=== PATIENT | female | born 1990 | race Asian ===

== ENCOUNTER → 2019-08-23 14:07 | Outpatient (CLI) | payer BC, SELFPAY ==
[2019-08-23 15:26] LABS: hCG Titer Quant., Serum 11263 mIU/mL (1-3)
== END ==
PROVIDERS: Referring Provider Obstetrics & Gynecology; Visit Provider Obstetrics & Gynecology
DX: N91.2 Amenorrhea, unspecified (principal)
CPT/HCPCS: 36415; 84702

== ENCOUNTER → 2019-08-26 08:08 | Outpatient (CLI) | payer BC, SELFPAY ==
[2019-08-26 08:56] LABS: hCG Titer Quant., Serum 11113 mIU/mL (1-3)
== END ==
PROVIDERS: Referring Provider Obstetrics & Gynecology; Visit Provider Obstetrics & Gynecology
DX: N91.2 Amenorrhea, unspecified (principal)
CPT/HCPCS: 36415; 84702

== ENCOUNTER 2019-08-31 17:38 | Emergency (ER) | payer BC, SELFPAY ==
[2019-08-31 17:41] VITALS: BP 115/68; PULSE 88; RESP 17; TEMP 36.3; O2SAT 100; BMI 19.8
--- NOTE | 2019-08-31 17:54 | ED.VIS.FEGU ---
History of Present Illness Chief Complaint: Vag Bld, Preg Informant: Patient Pain: Pelvic Pain Onset: Today Context: Gradual Onset Timing: Waxes and wanes Quality: Cramping Location: Suprapubic Current Severity: Mild Maximum Severity: Mild Issue: Vaginal bleeding Onset: Yesterday Context: Gradual Onset Timing: Intermittent Current Severity: Mild Maximum Severity: Mild Associated Symptoms: Negative for: Dysuria, Frequency, Urgency, Hematuria Test: Positive, Urine, Home Sexually: Single Partner P: 0 Ab: 2 Narrative: Patient had a home test that was positive, and is around 8 weeks along, states she started bleeding spontaneously yesterday a little worse today. A little cramping. No lightheadedness or syncope. Past Medical History - Allergies and Home Meds Allergies/Adverse Reactions: Allergies No Known Allergies Allergy (Verified 08/31/19 17:40) Primary Care Physician: Opal Agustin MD [STAFF PHYSICIAN] - 3-5 Days Doctors: WILLAM - Nikole Past Medical History: None Lives: Spouse/ Significant Other Review of Systems General: Denies: Chills, Fever, Sweats Eyes: Denies: Visual changes - bilaterally, Diplopia ENT: Denies: Rhinorrhea, Sore throat Cardiovascular: Denies: Chest pain, Palpitations Respiratory: Denies: Dyspnea, Cough, Dyspnea on exertion Gastrointestinal: Reports: Abdominal pain. Denies: Nausea, Vomiting, Diarrhea, Melena, Hematochezia Genitourinary: Reports: - - vaginal bleeding. Denies: Dysuria, Hematuria, Frequency Musculoskeletal: Denies: Back pain, Extremity Pain Skin: Denies: Rash, Wounds Neurological: Denies: Headache, Weakness, Numbness Physical Exam Vital Signs/Narrative: Vital Signs Temp Pulse Resp BP Pulse Ox 08/31/19 17:41 97.4 F L 88 17 115/68 100 Inital Vital Signs reviewed: Yes General: Well nourished, Well developed Head: Normocephalic, Atraumatic Eyes: Perrl, EOMI ENT: Moist mucous membranes, No rhinorrhea Neck: Supple, Nontender Cardiovascular: Regular rate, Regular rhythm, No murmurs Respiratory: No distress, CTA bilaterally, Chest nontender Abdomen: Soft, Nontender, Nondistended, Normal bowel sounds Back: Nontender, Normal Inspection. Negative for: CVA tenderness Extremities: Nontender, No edema Skin: Normal color, No rash Neurological: Alert, Oriented x3, Cranial nerves II-XII grossly intact, Normal Strength, Normal Sensation, Normal Gait Psychological: Normal affect, Normal Mood Diagnostic/Tx/Re-eval Clinical Impression(s) from Imaging Studies Obstetrics Ultrasound 08/31/19 18:05 IMPRESSION: Single IUP at 6 weeks and 3 days by ultrasound criteria Electronically Signed: Bobby Ge MD at 19:54 EDT , Service support , Laboratory Results 08/31/19 08/31/19 08/31/19 17:56 18:10 18:10 HCG, Quant 9552 H Urine Color Yellow Urine Clarity Sl. Cloudy Urine pH 6.5 Ur Specific [place] 1.015 Urine Protein Negative Urine Glucose (UA) Normal Urine Ketones Negative Urine Occult Blood 150 H Urine Nitrite Negative Urine Bilirubin Negative Urine Urobilinogen 1 H Ur Leukocyte Esterase Negative Urine RBC 0-5 SEEN Urine WBC 0 SEEN Ur Squamous Epith Cells 0-5 SEEN Urine Bacteria RARE Urine Mucus 0 SEEN Blood Type TNP 08/31/19 18:10 HCG, Quant Urine Color Urine Clarity Urine pH Ur Specific [place] Urine Protein Urine Glucose (UA) Urine Ketones Urine Occult Blood Urine Nitrite Urine Bilirubin Urine Urobilinogen Ur Leukocyte Esterase Urine RBC Urine WBC Ur Squamous Epith Cells Urine Bacteria Urine Mucus Blood Type B POSITIVE - Medical Decision/Diagnostic Studies I performed a bedside ultrasound, however visualization was very difficult, possibly related to the fact that the patient had just emptied her bladder and had a lot of bowel gas. It appeared that she had a double decidual sign but I was not able to see anything else within it. Therefore an official ultrasound was obtained transvaginally in radiology. It shows a scant amount of free fluid, no sign of an ectopic, and a single live intrauterine with heart tones 117 and estimated CRL at 6-week 3-day. Quantitative hCG is 9500. At this time, she is a threatened and stable for outpatient follow-up. Appropriate discharge instructions given. Since her blood type is B+, RhoGam not indicated. ED Disposition - Plan for ED Patient: Disposition: Home or Assisted Living Diagnosis: Threatened in first trimester Instructions: ED Possible Miscarriage Threatened Referrals: Opal Agustin MD [STAFF PHYSICIAN] - 3-5 Days
--- NOTE | 2019-08-31 18:05 | US_ITS ---
STUDY: FIRST TRIMESTER OBSTETRICAL ULTRASOUND REASON FOR EXAM: Female, 29 years old SPOTTING AND CRAMPING JUST TODAY TECHNIQUE: Transvaginal TECHNICAL QUALITY: Adequate. PRIOR ULTRASOUND: None. FINDINGS: There is visualization of a single gestational sac in a normal intrauterine position. The mean sac diameter (MSD) measures 1.64 cm, indicating an estimated gestational age (EGA) of 6 weeks, 4 days. The gestational sac shape is within normal limits. There is a visualized yolk sac. The yolk sac measures 6.6 mm. The placenta is non-visualized. There is visualization of a live embryo. The crown-rump length (CRL) measures 0.45 cm, indicating an estimated gestational age (EGA) of 6 weeks, 2 days. There is demonstrated cardiac activity with a heart rate of 117 bpm. The estimated gestation age (EGA) by US is 6 weeks, 3 days. The estimated date of delivery (DREW) by US is April 22, 2020. The uterus measures 7.1 x 6.2 x 4.2 cm. There is no demonstrated uterine fibroid. The cervix is closed. The right ovary measures 3.7 x 2.7 cm. There is no right ovarian cyst. There is no visualized right adnexal mass or complex lesion. The left ovary measures 3.0 x 2.2 cm. There is no left ovarian cyst. There is no visualized left adnexal mass or complex lesion. There is minimal fluid in the cul de sac. US/Transvaginal w/Preg US IMPRESSION: Single IUP at 6 weeks and 3 days by ultrasound criteria Electronically Signed: Bobby Ge MD at 19:54 EDT , Service support ,
[2019-08-31 18:23] LABS: Mucous, Urine 0 SEEN /hpf (<or=2+); White Blood Cells 0 SEEN /hpf (0-5)
[2019-08-31 18:27] LABS: Color, Urine Yellow (Yellow); Glucose, Dipstick Normal (Normal); Ketone-Dipstick Negative (Negative); Leukocyte Esterase-Dipstick Negative /ul (Negative); Nitrite-Dipstick Negative (Negative); Occult Blood-Urine 150 /ul (Negative); Protein-Dipstick Negative (Negative); Specific Gravity, Urine 1.015 (1.002-1.030); Urine Bilirubin Dipstick Negative (Negative); Urine Clarity Sl. Cloudy (Clear); Urine Urobilinogen 1 mg/dl (Normal); Urine pH 6.5 (5.0 - 8.0)
[2019-08-31 18:48] LABS: Red Blood Cells-Urine 0-5 SEEN /hpf (0-5); Squamous Epithelial Cells - UA 0-5 SEEN /hpf (5-10)
[2019-08-31 18:49] LABS: Bacteria RARE /hpf (None Seen)
[2019-08-31 18:54] LABS: hCG Titer Quant., Serum 9552 mIU/mL (1-3)
[2019-08-31 20:19] VITALS: RESP 14
== END 2019-08-31 20:19 | disposition home or self-care (01) ==
PROVIDERS: Emergency Provider Emergency Medicine
DX: O20.0 Threatened abortion (principal); Z3A.01 Less than 8 weeks gestation of pregnancy
CPT/HCPCS: 76817; 81001; 84702; 86900; 86901; 99283; A4216

== ENCOUNTER → 2019-10-23 18:03 | Outpatient (CLI) | payer BC, SELFPAY ==
[2019-09-04 13:17] VITALS: BMI 19.8
[2019-10-23 20:40] LABS: hCG Titer Quant., Serum 25858 mIU/mL (1-3)
== END ==
PROVIDERS: Nurse Practitioner Women's Health; Referring Provider Obstetrics & Gynecology; Visit Provider Obstetrics & Gynecology
DX: O20.0 Threatened abortion (principal); Z3A.00 Weeks of gestation of pregnancy not specified
CPT/HCPCS: 84702; 86850; 86900; 86901

== ENCOUNTER → 2019-10-25 15:02 | Outpatient (CLI) | payer BC, SELFPAY ==
[2019-09-04 13:17] VITALS: BMI 19.8
--- NOTE | 2019-10-25 15:09 | US_ITS ---
STUDY: FIRST TRIMESTER OBSTETRICAL ULTRASOUND REASON FOR EXAM: Female, 29 years old. Spotting. Recent miscarriage. LMP: Unknown. TECHNIQUE: Transvaginal PRIOR ULTRASOUND: None. FINDINGS: There is visualization of a single gestational sac in a normal intrauterine position. There is a visualized yolk sac. There is visualization of a live embryo. The crown-rump length (CRL) measures 4.4 mm, indicating an estimated gestational age (EGA) of 6 weeks, 1 days. The mean sac diameter corresponds to 7 weeks and 1 day. The sonographic age of 6 weeks and 5 days. The estimated delivery date is 06/14/20. There is demonstrated cardiac activity with a heart rate of 105 bpm. The uterus measures 7.9 x 6.6 x 4.9 cm. There is no demonstrated uterine fibroid. The cervix is closed. The right ovary measures 3.4 x 2.5 x 1.9 cm. There is no right ovarian cyst. There is no visualized right adnexal mass or complex lesion. The left ovary measures 4.6 x 3.5 x 2.4 cm. There is a 2.6 x 2.5 cm cyst in the left ovary which likely represents a corpus luteum. There is no visualized left adnexal mass or complex lesion. There is minimal fluid in the cul de sac. US/Init OB < 14Wks US IMPRESSION: Single live intrauterine gestation, as described above. Electronically Signed: Michel Marcelo, at 22:00 EDT Tel , Service support ,
== END ==
PROVIDERS: Referring Provider Nurse Practitioner Women's Health; Visit Provider Nurse Practitioner Women's Health
DX: Z34.90 Encounter for supervision of normal pregnancy, unspecified, unspecified trimester (principal)
CPT/HCPCS: 76801

== ENCOUNTER → 2019-10-28 16:41 | Outpatient (CLI) | payer BC, SELFPAY ==
[2019-10-28 10:29] VITALS: BMI 19.8
[2019-10-28 19:00] LABS: Amphetamine Urine VISTA NEGATIVE (<1000 ng/mL); Barbiturate Urine VISTA NEGATIVE (< 200 ng/mL); Benzodiazepine Urine VISTA NEGATIVE (< 200 ng/mL); Cocaine Urine VISTA NEGATIVE (< 300 ng/mL); Ecstacy Urine VISTA NEGATIVE (< 500 ng/mL); Methadone Urine VISTA NEGATIVE (< 300 ng/mL); PCP Urine VISTA NEGATIVE (< 25 ng/mL); THC Urine VISTA NEGATIVE (< 50 ng/mL); Vista UDS pH Range 6
[2019-10-31 07:07] LABS: Chlamydia By Nucleic Acid AMP Negative (Negative)
[2019-10-31 08:24] LABS: Gonococcus By Nucleic Acid AMP Negative (Negative)
== END ==
PROVIDERS: Referring Provider Obstetrics & Gynecology; Visit Provider Obstetrics & Gynecology
DX: Z34.90 Encounter for supervision of normal pregnancy, unspecified, unspecified trimester (principal)
CPT/HCPCS: 80307; 87086; 87088; 87491; 87591

== ENCOUNTER → 2019-11-28 09:38 | Outpatient (CLI) | payer BC, SELFPAY ==
[2019-11-28 09:07] VITALS: BMI 19.8
[2019-11-28 10:20] LABS: Absolute Lymphocyte Count 1.88 X10^3/uL (0.83-4.51); Absolute Neutrophil Count 4.9 X10^3/uL (2.0-7.7); Basophil# 0.06 X10^3/uL; Basophil% 0.8 % (0-1); Eosinophil# 0.05 X10^3/uL; Eosinophils% 0.7 % (0-5); Hematocrit 41.8 % (37-47); Hemoglobin 13.5 g/dL (12.0-15.0); Lymphocyte # 1.88 X10^3/ul (4.0); Lymphocyte % 25.5 % (19-41); Mean Corp Hgb Conc 32.3 g/dL (32-36); Mean Corpuscular Hgb 28.8 pg (27.0-32.0); Mean Corpuscular Volume 89.3 fL (81-99); Mean Platelet Vol. 11.2 fl (6.2-12.0); Monocyte# 0.49 X10^3/uL; Monocyte% 6.6 % (0-10); NRBC Flagged by Analyzer 0 % (0-5); Neutrophil # 4.87 X10^3/uL (2.7-7.7); Platelet Count 201 K/mm3 (150-450); RBC Distribution Width CV 13.2 % (11.6-14.6); RBC Distribution Width SD 43.6 fl (35.1-43.9); Red Blood Count 4.68 M/mm3 (4.2-5.4); White Blood Count 7.4 K/mm3 (4.4-11.0)
[2019-11-28 12:34] LABS: HIV - WCH Non-Reactive (Nonreactive); Hepatitis B Surface Antigen Non-Reactive (Nonreactive); Hepatitis C Antibody Non-Reactive (Nonreactive); Rubella IgG 103.1 IU/mL
[2019-12-05 02:04] LABS: Rapid Plasmin Reagin (RPR) NONREACTIVE (NONREACTIVE)
[2019-12-06 14:43] LABS: NATERA MAILED SPECIMEN
== END ==
PROVIDERS: Referring Provider Obstetrics & Gynecology; Visit Provider Obstetrics & Gynecology
DX: Z34.90 Encounter for supervision of normal pregnancy, unspecified, unspecified trimester (principal)
CPT/HCPCS: 36415; 85025; 86592; 86703; 86762; 86803; 86850; 86900; 86901; 87340

== ENCOUNTER → 2020-02-26 15:44 | Outpatient (CLI) | payer BC, SELFPAY | PROVIDERS: Referring Provider Physician Assistant; Visit Provider Physician Assistant | DX: Z20.828 Contact with and (suspected) exposure to other viral communicable diseases (principal) | CPT/HCPCS: 87635; U0003 ==

== ENCOUNTER → 2020-03-23 08:54 | Outpatient (CLI) | payer BC, SELFPAY ==
[2020-03-23 08:37] VITALS: BMI 23.1
[2020-03-23 09:12] LABS: Absolute Lymphocyte Count 1.93 X10^3/uL (0.83-4.51); Absolute Neutrophil Count 4.1 X10^3/uL (2.0-7.7); Basophil# 0.03 X10^3/uL; Basophil% 0.4 % (0-1); Eosinophil# 0.07 X10^3/uL; Hematocrit 33.7 % (37-47); Hemoglobin 10.7 g/dL (12.0-15.0); Lymphocyte # 1.93 X10^3/ul (4.0); Lymphocyte % 28.8 % (19-41); Mean Corp Hgb Conc 31.8 g/dL (32-36); Mean Corpuscular Volume 94.4 fL (81-99); Monocyte# 0.51 X10^3/uL; Monocyte% 7.6 % (0-10); NRBC Flagged by Analyzer 0 % (0-5); Neutrophil # 4.13 X10^3/uL (2.7-7.7); Neutrophil % 61.8 % (47-70); Platelet Count 155 K/mm3 (150-450); RBC Distribution Width CV 12.9 % (11.6-14.6); RBC Distribution Width SD 45.3 fl (35.1-43.9); Red Blood Count 3.57 M/mm3 (4.2-5.4); White Blood Count 6.7 K/mm3 (4.4-11.0)
[2020-03-23 09:36] LABS: Glucose Challenge Gest 1H 50g 94 mg/dL (70-140)
== END ==
PROVIDERS: Referring Provider Obstetrics & Gynecology; Visit Provider Obstetrics & Gynecology
DX: Z34.90 Encounter for supervision of normal pregnancy, unspecified, unspecified trimester (principal)
CPT/HCPCS: 36415; 82950; 85025

== ENCOUNTER → 2020-04-20 16:35 | Outpatient (CLI) | payer BC, SELFPAY ==
[2020-04-20 13:23] VITALS: BMI 23.1
== END ==
PROVIDERS: Referring Provider Obstetrics & Gynecology; Visit Provider Obstetrics & Gynecology
DX: O26.899 Other specified pregnancy related conditions, unspecified trimester (principal); N89.8 Other specified noninflammatory disorders of vagina; Z3A.00 Weeks of gestation of pregnancy not specified
CPT/HCPCS: 87070; 87205

== ENCOUNTER → 2020-05-22 13:05 | Outpatient (CLI) | payer BC, SELFPAY ==
[2020-05-22 08:37] VITALS: BMI 23.6
== END ==
PROVIDERS: Visit Provider Obstetrics & Gynecology
DX: Z34.00 Encounter for supervision of normal first pregnancy, unspecified trimester (principal)
CPT/HCPCS: 87081

== ENCOUNTER 2020-05-29 11:05 | Observation (INO) | payer BC, SELFPAY ==
[2020-05-29] VITALS (14 sets, daily range): BP systolic 77–111; BP diastolic 39–77; PULSE 65–88; RESP 12–20; TEMP 36.1–36.8; O2SAT 97–100; BMI 24.3; BMI 25.8
--- NOTE | 2020-05-29 11:12 | NURSING ---
NO OLD EKGS
--- NOTE | 2020-05-29 11:14 | ED.RN ---
OB NURSES IN THE DEPARTMENT HOOKING UP MONITOR
--- NOTE | 2020-05-29 11:17 | EKG12_ITS ---
Test Reason : SYNCOPE Blood Pressure : / mmHG Vent. Rate : 075 BPM Atrial Rate : 075 BPM P-R Int : 154 ms QRS Dur : 084 ms QT Int : 348 ms P-R-T Axes : 032 076 015 degrees QTc Int : 388 ms Normal sinus rhythm Normal ECG Confirmed by PRICILA SUAREZ, BRAD ([id number]), technical writer and editor ZAID LOMBARDO ([id number]) on 06/01/2020 1:45:09 PM Referred By: LUDA/LIS Confirmed By:BRAD MCNULTY MD
--- NOTE | 2020-05-29 11:20 | NURSING ---
Arrived in ER at this time to preform FHR tracing on patient. EDC 06/18/20 for 37.1 weeks. Patient denies contractions, leaking of fluid, bleeding, or vaginal discharge. Patient denies headache. Patient reports tingling to bilateral legs and blurry vision during assessment but denies dizziness. Patient negative for edema to BLE, BUE, and face. No clonus. Lungs clear anteriorly and posteriorly bilaterally. Heart rate regular. Bowel sounds present x4 quadrants. Patient denies pain.
[2020-05-29] MEDS: 0.9% Normal Saline 1,000 ML 1000 ML IV (11:24)
[2020-05-29 11:28] LABS: Absolute Lymphocyte Count 1.68 X10^3/uL (0.83-4.51); Absolute Neutrophil Count 3.7 X10^3/uL (2.0-7.7); Basophil# 0.01 X10^3/uL; Basophil% 0.2 % (0-1); Eosinophil# 0.03 X10^3/uL; Eosinophils% 0.5 % (0-5); Hematocrit 36.6 % (37-47); Hemoglobin 12.3 g/dL (12.0-15.0); Lymphocyte # 1.68 X10^3/ul (4.0); Lymphocyte % 27.8 % (19-41); Mean Corp Hgb Conc 33.6 g/dL (32-36); Mean Corpuscular Hgb 32.1 pg (27.0-32.0); Mean Corpuscular Volume 95.6 fL (81-99); Mean Platelet Vol. 11.5 fl (6.2-12.0); Monocyte# 0.57 X10^3/uL; Monocyte% 9.4 % (0-10); NRBC Flagged by Analyzer 0 % (0-5); Neutrophil # 3.72 X10^3/uL (2.7-7.7); Neutrophil % 61.6 % (47-70); Platelet Count 131 K/mm3 (150-450); RBC Distribution Width CV 14.6 % (11.6-14.6); RBC Distribution Width SD 50.1 fl (35.1-43.9); Red Blood Count 3.83 M/mm3 (4.2-5.4)
[2020-05-29 11:39] LABS: Anion Gap 10 (5-15); BUN 8 mg/dL (7-18); Calcium,Total 8.8 mg/dL (8.5-10.1); Chloride 103 mmol/L (98-107); Creatinine, Serum 0.73 mg/dL (0.55-1.02); EST Glomerular Filtration Rate 100 mL/min (>60); Est Glom Filt Rate - Afr Amer 121 mL/min (>60); Estimated Creatinine Clearance 89.93 ml/min; Glucose 115 mg/dL (74-106); Potassium 3.6 mmol/L (3.5-5.1); Sodium Level 137 mmol/L (136-145)
--- NOTE | 2020-05-29 11:45 | CT_ITS ---
STUDY: CT BRAIN WITHOUT CONTRAST REASON FOR EXAM: Female, 30 years old. Syncope -- shield abdomen. Syncopal episode. Patient is 36 weeks . The patient was shielded appropriately. RADIATION DOSAGE (If Supplied By Facility): CTDIvol = ( 44.99 ) mGy, DLP = ( 779.24 ) mGycm TECHNIQUE: Transaxial CT imaging of the brain was performed without administration of intravenous contrast material. Individualized dose optimization techniques were used for this CT. COMPARISON: No relevant priors. FINDINGS: Normal soft tissue structures. Normal calvarium. Normal size ventricles and extra-axial spaces for the patient''s age. Normal white matter tracts of the cerebral hemispheres. Normal basal ganglia and thalami. Normal brainstem. Normal cerebellum. There is no intracranial hemorrhage. There are no findings of an acute ischemic infarction. Normal visualized paranasal sinuses. CT/Brain/Head without Contrast IMPRESSION: Normal unenhanced CT scan of the brain. Electronically Signed: Juan Francisco Dumont MD at 12:35 EDT , Service support ,
--- NOTE | 2020-05-29 11:45 | CT_ITS ---
STUDY: CTA CHEST REASON FOR EXAM: Female, 30 years old. Syncope -- shield abdomen RADIATION DOSAGE (If Supplied By Facility): CTDIvol = ( 10.32 ) mGy, DLP = ( 274.39 ) mGycm TECHNIQUE: The examination was performed with the intravenous administration of IV 100mL Isovue-370. Post-processing of the angiographic images was performed, with multiplanar reformation and 3D reconstruction. Individualized dose optimization techniques were used for this CT. COMPARISON: None. FINDINGS: Subsegmental intraluminal filling defects seen in branches of the right upper lobe pulmonary artery in keeping with pulmonary emboli. Normal thoracic aorta and visualized great vessels. There is no demonstrated aortic dissection. Normal heart and pericardium. Normal mediastinum. Normal hilar regions. Normal visualized trachea and bronchi. The lungs are well expanded. Normal pulmonary parenchyma. Normal pleura. Normal chest wall structures. Normal osseous structures. A large amount of residual food particles seen within the stomach. CT/CTA Chest W/WO Contrast IMPRESSION: Subsegmental intraluminal filling defects in branches of the right upper lobe pulmonary artery in keeping with localized pulmonary embolism. Electronically Signed: Juan Francisco Dumont MD at 12:45 EDT , Service support ,
--- NOTE | 2020-05-29 11:46 | US_ITS ---
STUDY: OBSTETRICAL ULTRASOUND - BIOPHYSICAL PROFILE REASON FOR EXAM: Female, 30 years old 36 wk . Syncope. Pulmonary embolism. LMP: Unknown. PRIOR ULTRASOUND: None. TECHNIQUE: Transabdominal TECHNICAL QUALITY: Adequate. FINDINGS: There is a single intrauterine fetus. The fetus is in a cephalic presentation. There is demonstrated cardiac activity with a heart rate of 136 bpm. There is a normal amniotic fluid volume. The largest amniotic fluid pocket measures 5.32 cm. The amniotic fluid index (CHINEDU) is 8.25 cm. This measures between the fifth and 10th percentile. The placenta is There are Grade 0 placental changes. Age by LMP: 37 weeks, 1 days. DREW by LMP: 06/18/2020. BIOPHYSICAL PROFILE: Breathing Movements (FBM): 2 Gross Body Movements (GBM): 2 Tone (FT): 2 Amniotic Fluid Volume (AFV): 2 TOTAL SCORE: 8 / 8 US/Biophysical Prof W/O Non Stres IMPRESSION: Normal biophysical profile of 8/8. Electronically Signed: Juan Francisco Dumont MD at 15:12 EDT , Service support ,
--- NOTE | 2020-05-29 11:46 | US_ITS ---
STUDY: SECOND AND THIRD TRIMESTER OBSTETRICAL ULTRASOUND - LIMITED REASON FOR EXAM: Female, 30 years old 36 wk growth-syncope LMP: 09/12/2019 PRIOR ULTRASOUND: None. TECHNIQUE: Transabdominal TECHNICAL QUALITY: Adequate. FINDINGS: There is a single intrauterine fetus. The fetus is in a cephalic presentation. There is demonstrated cardiac activity with a heart rate of 155 bpm. There is a normal amniotic fluid volume. The largest amniotic fluid pocket measures 4.5 cm. The amniotic fluid index (CHINEDU) is 7.9 cm. The placenta is There are Grade 1 placental changes. The cervix length was not visualized. BIOMETRY: BPD: 9 cm: 36 weeks, 4 days HC: 32.2 cm: 36 weeks, 2 days AC: 32.3 cm: 36 weeks, 1 days FL: 6.970: 30 weeks, 2 days Age by LMP: 37 weeks, 1 days. DREW by LMP: 06/18/2020. age by current US: 35 weeks, 6 days. DREW by current US: 06/27/2020. Estimated weight: 2871 grams, +/- 43 grams, 32 percentile. US/OB Limited With Biometrics IMPRESSION: Single live intrauterine gestation with a mean gestational age of 35 weeks and 6 days. The amniotic fluid measures lower limits of normal. Electronically Signed: Juan Francisco Dumont MD at 15:15 EDT , Service support ,
--- NOTE | 2020-05-29 11:53 | ED.DCSUM_ITS ---
- ER Visit Summary Date of Service: 05/29/20 Chief Complaint: Syncope History of Present Illness: The patient is a 30 F presenting after syncopal episode. Patient was at her [employer] office for a routine checkup. She states that she was in the exam room waiting on the physician and she started to feel lightheaded. She states she has had panic attacks in the past and this felt similar. She lowered herself to the floor and had a syncopal episode. Rapid response team was called. Patient is currently 36 weeks . She states she had spotting on Monday but no vaginal bleeding today. Denies abdominal pain or cramping. Denies chest pain. Denies headache. Physical Examination: Vitals are stable. Blood pressure 97/67. Patient is afebrile. Alert no acute distress. HEENT exam is unremarkable. Neck is supple. Nontender Lungs are clear and equal bilaterally. Heart is regular rate and rhythm. Abdomen is soft nontender gravid Extremities are unremarkable. No edema Skin is warm and dry. No focal neurologic deficit. Remainder of exam is unremarkable. Emergency Department Course and Treatment: monitoring was started in the ED. She was given IV fluids. She is feeling improved. EKG is sinus rhythm rate of 75 with no acute ischemic changes. CBC, chemistries unremarkable other than platelet 131, glucose 115. Discussed with Dr. Abraham. Normal unenhanced CT scan of the brain. CTA chest shows subsegmental intraluminal filling defects in branches of the right upper lobe pulmonary artery in keeping with localized pulmonary embolism. Patient was given Lovenox. Discussed with Dr. Abraham and hospitalist. Patient will be admitted. Disposition: Admission Impression: Syncope, pulmonary embolism, third trimester This note was generated with [employer] dictation software. It may contain incorrect words, spelling, and punctuation that were not noted in review of the chart prior to signing ED Disposition - Plan for ED Patient: Referrals: Care Physician,No Primary [Primary Care Provider] -
--- NOTE | 2020-05-29 12:31 | ED.RN ---
PT WAS A STAFF ASSIST IN ULTRASOUND. PT HYPERVENTILATING, PER US TECH PT REPORTED SHE FELT AN ATTACK COMING ON PRIOR TO STAFF ASSIST BEING CALLED. PT BP 92/63, HR 73, RR 26. 100% ON ROOM AIR. PT PLACED ON 15L NON REBREATHER. DR. LARES AT BEDSIDE. PT NOT ALERT BUT RESPONDS TO VERBAL STIMULI. PT RETURNED TO ED ROOM 1. AWAITING CT RESULTS. UNABLE TO COMPLETE THE US AT THIS TIME. OB AT BEDSIDE TO REPLACE MONITOR.
--- NOTE | 2020-05-29 12:55 | ED.RN ---
PT NOW ALERT. REPORTS NEED TO URINATE. PT PLACED ON BEDPAN.
--- NOTE | 2020-05-29 12:57 | NURSING ---
Patient reports tingling to legs and blurry vision have resolved. Reassessment unchanged otherwise from previously charted assessment by this RN.
--- NOTE | 2020-05-29 13:15 | CON.PCM_ITS ---
Problem List (1) Right upper lobe segmental pulmonary emb Status: Acute (2) 36 weeks gestation of Status: Acute Comment: electronic covid test ordered 05/19/20 (3) Anemia affecting Status: Acute Qualifiers: Trimester: third trimester Qualified Code(s): O99.013 - Anemia complicating , third trimester Comment: iron added. (4) History of tetanus, diphtheria, and acellular pertussis booster vaccination (Tdap) Status: Acute Comment: 03/23/20 (5) H/O miscarriage, currently Status: Acute Comment: 08/2019 (6) Supervision of normal first Status: Acute Qualifiers: Trimester: third trimester Qualified Code(s): Z34.03 - Encounter for supervision of normal first , third trimester Comment: PRR DREW:06/18/20 DOES NOT WANT TO KNOW GENDER Spouse: West (7) Status: Acute Qualifiers: Weeks of gestation: 37 weeks Qualified Code(s): Z3A.37 - 37 weeks gestation of Comment: NIPT low risk, declines carrier and AFP. anatomy reviewed Reason for Consult Date of Consultation: 05/29/20 Reason for Consultation: Passed out in the OB office. History of Present Illness: The patient is a 30 year old F 37 weeks , patient was seen in [employer] office for routine checkup. I talked to Dr. Abraham. While in the office she was started having heavy breathing, feeling lightheaded and laid down on the floor and had syncopal episode. She was unresponsive loss of consciousness for about 10 to 15 minutes and was drowsy. Rapid response was called. After that she was also decreased awareness/lethargic and drowsy in ultrasound room. Further she said she has history of anxiety and panic attack and she was put on antianxiety/antidepressant in [place] when she was there but she took only for few months. She moved to [facility] about 3 and half years ago. She has history of passing out every 3 to 4 months as per her near the bedside. In ER blood pressure is low but her baseline blood pressure is always in 90s. When I saw her she was not short of breath. Vitals blood pressure 99/69, heart rate 71 per night pulse ox 98% on room air. Twelve-lead EKG shows normal sinus rhythm at 75 bpm. She also had some chest CTA which shows segmental, localized right upper lobe pulmonary artery embolism. Unenhanced [] CT head normal. Obstetric ultrasound is not reported yet. As per patient she had 3 previous pregnancies before which she medically terminated first 2 and third 1 had miscarriage about 12 to 13 weeks. This is her fourth . She denies any previous history of DVT/PE. No lower extremity pain or swelling. She denies any family history of hypercoagulable disorder. She drives 1 hour every day but has not long hours of driving/immobility. Past Medical History Allergies No Known Allergies Allergy (Verified 05/29/20 10:15) Home Medications: Ambulatory Orders Medication Instructions Recorded docosahexaenoic acid 200 mg capsule mg PO 03/23/20 Vits [Prenatabs FA] 1 tablet PO DAILY 05/29/20 Surgical History: Surgical History (Last Reviewed 05/29/20 @ 10:15 by Ashley France) H/O eye surgery Z98.890 bilateral Status post elective Z98.890 x2 Smoking Status: Never smoker Alcohol: None Drugs: None - *Family History Maternal History Items: - - No first-degree family history of hypercoagulable disorder, DVT or PE Review of Systems Constitutional: Denies: Chills, Fever, Weight Change HEENT: Denies: Head Aches, Sinus Congestion, Sinus Drainage Cardiovascular: Reports: Heaviness, Light Headedness, Syncope. Denies: Chest Pain, Claudication, Chest Pressure, Chest Tightness, Edema, Palpitations Respiratory: Denies: Cough, Shortness of breath at rest, Sputum production Gastrointestinal: Denies: Abdominal Pain, Nausea, Vomiting Genitourinary: Denies: Dysuria Gynecological: Reports: - - Heavy spotting/vaginal bleed on last Monday, 05/22 and then small bleeding spotting on Monday Musculoskeletal: Denies: Joint Pain, Joint Tenderness Skin: Denies: Rash, Wounds Neurological: Denies: Numbness, Tingling, Focal weakness Psychiatric: Denies: Anxiety, Depression, Homicidal Ideations, Suicidal Ideations Hematologic/ Lymphatic: Denies: Easy Bruising, Easy Bleeding Objective: General: Alert, Oriented x3, Cooperative HEENT: Atraumatic, PERRLA, EOMI, Normocephalic Oral: No Gingival or Mucosal Lesions/ Ulcerations Neck: Supple, No JVD, Negative Carotid Bruits Lungs: Air entry equal in bilateral lung bases. No crepitation/rhonchi Cardiovascular: Regular rate, Regular Rhythm, Normal S1, Normal S2, No murmurs Abdomen: Bowel Sounds Present, Soft, Non Tender, Non-Distended : 37 weeks gravid uterus. sound audible. No renal angle tenderness. Denies dysuria/burning micturition. Extremities: No edema, Capillary Refill Less than 3 Seconds Skin: No rashes, No breakdown Musculoskeletal: No Tenderness to Palpation of Joints or Extremities Neurological: Cranial nerves II-XII grossly intact, Deep Tendon Reflexes 2+/4 and Symmetrical, Neuro grossly intact Psych/Mental Status: Normal Affect, Appropriate. - Physical Exam Vitals/I&O's: Vital Signs Temp Pulse Resp BP Pulse Ox 97.7 F L 75 14 100/69 99 05/29/20 11:06 05/29/20 13:07 05/29/20 13:07 05/29/20 13:07 05/29/20 13:07 Oxygen Flow Rate (L/min) 15 Oxygen Delivery Method Room Air Weight: 141 lb 5.061 oz Body Mass Index (BMI) 25.8 Intake and Output for Last 24 Hours 05/27/20 05/28/20 05/29/20 23:59 23:59 23:59 Intake Total 1000 / 1000 Balance 1000 / 1000 Laboratory Results 05/29/20 11:10: WBC 6.0, RBC 3.83 L, Hgb 12.3, Hct 36.6 L, MCV 95.6, MCH 32.1 H, MCHC 33.6, RDW Std Deviation 50.1 H, RDW Coeff of [place] 14.6, Plt Count 131 L, MPV 11.5, Immature Gran % (Auto) 0.500, Neut % (Auto) 61.6, Lymph % (Auto) 27.8, Evans % (Auto) 9.4, Eos % (Auto) 0.5, Baso % (Auto) 0.2, Absolute Neuts (auto) 3.7, Absolute Lymphs (auto) 1.68, Nucleated RBC % 0 05/29/20 11:10: Sodium 137, Potassium 3.6, Chloride 103, Carbon Dioxide 24.0, Anion Gap 10, BUN 8, Creatinine 0.73, Estim Creat Clear Calc 89.93, Est GFR (MDRD) Af Amer 121, Est GFR (MDRD) Non-Af 100, BUN/Creatinine Ratio 11.0, Glucose 115 H, Calcium 8.8 Assessment/Plan All Active Problems (Last Reviewed 05/29/20 @ 10:15 by Ashley France) Right upper lobe segmental pulmonary emb (Acute) 36 weeks gestation of (Acute) Anemia affecting (Acute) History of tetanus, diphtheria, and acellular pertussis booster vaccination (Tdap) (Acute) H/O miscarriage, currently (Acute) Supervision of normal first (Acute) (Acute) Bleeding in early (Resolved) Low-lying placenta (Resolved) Subchorionic hemorrhage (Resolved) 1. Syncope, exact etiology unclear possible vasovagal/panic attack, less likely due to PE: Patient is being admitted in PCU under Dr. Abraham service. IV fluid normal saline at 100 mill per hour for 1 L. Currently patient is awake alert oriented x3. Orthostatic blood pressure tomorrow a.m. troponin and BNP ordered. 2. Right upper lobe segmental pulmonary artery embolism: Started on Lovenox 1 mg/kg body weight. 2D echo ordered. Continue Lovenox until delivery and then might change to NOACs to complete a total of 3 months of anticoagulant treatment. Patient can have protein C, protein S and factor II, DNA analysis but complete anticoagulant work-up after 8 to 12 weeks of completion of anticoagulant agent. I do not see any good provoked risk factor for PE 3. History of anxiety and panic attack Inpatient E&M: [id number] Init Hosp L3
--- NOTE | 2020-05-29 13:33 | NURSING ---
PCU [facility] PE, THIRD TRIMESTER PREG
[2020-05-29] MEDS: Enoxaparin 80 MG/0.8 ML Syringe 65 MG SC ×2 (14:39→20:59)
--- NOTE | 2020-05-29 14:54 | ECHOD_ITS ---
Version 2 Reason For Study: Chest Pain Procedure This was a 2D Doppler, Color Flow transthoracic echocardiogram. Exam performed portable in ED. Left Ventricle Normal LV size. Left ventricular systolic function is normal. The estimated ejection fraction is 55 %. Normal diastology for age. No regional wall motion abnormalities noted. Right Ventricle Normal RV size. Normal systolic function. Atria Normal left atrium. Normal right atrium. Mitral Valve Normal mitral valve. Tricuspid Valve Normal tricuspid valve. Mild tricuspid valve insufficiency. Pulmonary artery systolic pressure is 22 mmHg. Aortic Valve Normal aortic valve. Trisinus/trileaflet aortic valve. Pulmonic Valve Normal pulmonic valve. Great Vessels Normal aortic root. The pulmonary artery is normal size. Normal inferior vena cava. Pericardium/Pleural No pericardial effusion. MMode/2D Measurements & Calculations LVIDd: 4.5 cm IVSd: 0.97 cm Ao root diam: 2.8 cm LVIDs: 2.8 cm LVPWd: 0.89 cm LA dimension: 2.9 cm FS: 36.9 % LAV(MOD-bp): 31.9 ml LA A4 area: 15.0 cm2 RA A4 area: 13.8 cm2 LAV(MOD-bp) Indexed: 19.4 ml/m2 LAV(MOD-sp2): 23.4 ml LAV(MOD-sp4): 38.3 ml Time Measurements MV dec time: 0.19 sec Doppler Measurements & Calculations MV E max brian: 112.2 cm/sec Lat Peak E' Brian: 21.1 cm/sec Med Peak E' Brian: 12.0 cm/sec MV A max brain: 47.5 cm/sec E/E' lat: 5.3 E/E' med: 9.3 MV E/A: 2.4 MV V2 max: 116.5 cm/sec MV P1/2t max brian: 115.2 cm/sec Ao V2 max: 119.3 cm/sec MV max P.4 mmHg MV P1/2t: 70.2 msec Ao max P.7 mmHg MV V2 mean: 55.4 cm/sec MV dec slope: 480.8 cm/sec2 MV mean P.5 mmHg MVA(P1/2t): 3.1 cm2 MV V2 VTI: 23.7 cm LV V1 max: 103.5 cm/sec PA V2 max: 107.9 cm/sec TR max brian: 204.2 cm/sec LV V1 max P.3 mmHg TR max P.7 mmHg ECHO/Echo Complete Interpretation Summary Normal LV size. Left ventricular systolic function is normal. The estimated ejection fraction is 55 %. Structurally normal valves. Ordering Physician: Arnel Zepeda Performed By: Daniel Noel RCS
[2020-05-29 16:10] LABS: BNP,B-Type NATRIURETIC PEPTIDE 59.4 pg/mL (0-100)
[2020-05-29] MEDS: 0.9% Normal Saline 1,000 ML 100 ML IV (16:33)
[2020-05-29] MEDS: 0.9% Saline Lock 10 ML Syringe IV (16:34)
[2020-05-29 18:10] LABS: Prothrombin Time (Protime)PT. 12.5 SECONDS (11.7-14.9)
[2020-05-29 18:11] LABS: Fibrinogen 474 mg/dl (203-444); Partial Thromboplast Time 29.9 Seconds (24.1-36.2)
--- NOTE | 2020-05-29 20:29 | PCM.HP.OB ---
- Problem List (1) Syncopal episodes Status: Acute (2) Right upper lobe segmental pulmonary emb Status: Acute (3) 36 weeks gestation of Status: Acute Comment: electronic covid test ordered 05/19/20 (4) Anemia affecting Status: Acute Qualifiers: Trimester: third trimester Qualified Code(s): O99.013 - Anemia complicating , third trimester Comment: iron added. (5) History of tetanus, diphtheria, and acellular pertussis booster vaccination (Tdap) Status: Acute Comment: 03/23/20 (6) H/O miscarriage, currently Status: Acute Comment: 08/2019 (7) Supervision of normal first Status: Acute Qualifiers: Trimester: third trimester Qualified Code(s): Z34.03 - Encounter for supervision of normal first , third trimester Comment: PRR DREW:06/18/20 [place]! Spouse: West (8) Status: Acute Qualifiers: Weeks of gestation: 37 weeks Qualified Code(s): Z3A.37 - 37 weeks gestation of Comment: NIPT low risk, declines carrier and AFP. anatomy reviewed History Date of Admission: 05/29/20 Final DREW: 06/18/20 Gestational age: 37 Weeks and 1 Days History of this : This is a 30 year-old, G 4, P 0, at 37 weeks gestational age admitted for pulmonary embolism identified after patient had episode of loss of consciousness in the office. Patient presented this morning for a routine OB visit. While in the office, she reported that she felt like she was about to have a panic attack. Patient began hyperventilating and lowered herself to the floor in hands and knees and then laid on her side. During the episode she was noted to be unresponsive with her eyes rolled back in her head and increased muscle tone noted in her arms and legs. Patient took approximately 10 to 15 minutes to become responsive. Rapid response was called on the patient in the office and she was transferred to the emergency department. While in the emergency department patient underwent a CT of the head as well as a CTA of the chest which identified a pulmonary embolus. Patient is admitted for initiation of anticoagulation for pulmonary embolus and for further monitoring following episode of loss of consciousness in the office. Patient reports that she has these episodes that she calls panic attacks that have been an ongoing issue since her teenage years. She reports that she was seen by a physician in [place] for this issue and underwent a thorough work-up. Reports that she was told following her work-up that these appeared to be panic attacks and was initially started on antidepressant. Reports that the medication did not help with these episodes and in fact made her have episodes more frequently. Reports that she then had a 5 to 6-year interval in which she did not have any episodes. Reports did not have issues with this except on rare occasions immediately prior to this . Reports that she has had 2 other episodes during her third trimester. Reports that both of her other episodes during her third trimester while out were while laying on her back and feeling short of breath. Reports that she feels that shortness of breath is largely contributing to these episodes as it makes her feel panicked that she cannot catch her breath so she then begins hyperventilating. Reports that during her episodes, she feels like she has a out of body experience. Reports that she is somewhat aware of what is going on around her and who is present, but is unable to move her extremities and feels that her brain is foggy. Reports that she feels like she wants to respond to commands or answer questions but is physically unable to make her body do this. She does also report worsening shortness of breath over the last few weeks that she thought was just related to pressure from the . Denies personal or family clotting history. Denies current issues with depression or anxiety and feels that she is happy and does not feel overwhelmed in her normal life. Surgical History: Surgical History (Last Reviewed 05/29/20 @ 10:15 by Ashley France) H/O eye surgery Z98.890 bilateral Status post elective Z98.890 x2 Allergies No Known Allergies Allergy (Verified 05/29/20 10:15) Home Medications: Home Medications Vits [Prenatabs FA] 1 tablet PO DAILY 05/29/20 Smoking Status: Never smoker Alcohol: None Number of Fetus(es): 1 NST - FHR Rate Baby A Variability:: Moderate Accelerations:: 15 x 15 Decelerations:: None NST Reactive:: Yes FHR Category:: Category I Uterine Activity:: Irritability History Past Pregnancies: Past Pregnancies Delivery Date Name GA/ Weeks Outcome Route Wt Sex Labor Length Anesthesia Delivery Location Provider FOB Labs: Mom's Problem List Problem Status Onset Code Right upper lobe segmental pulmonary emb Acute Syncopal episodes Acute R55 36 weeks gestation of Acute Z3A.36 Anemia affecting Acute O99.019 History of tetanus, diphtheria, and acellular pertussis booster vaccination (Tdap) Acute Z92.29 H/O miscarriage, currently Acute O09.299 Supervision of normal first Acute Z34.00 Acute Z34.90 Mom's Labs & Results 05/29/20 05/29/20 05/29/20 11:10 11:10 11:10 WBC 6.0 RBC 3.83 L Hgb 12.3 Hct 36.6 L MCV 95.6 MCH 32.1 H MCHC 33.6 RDW Std Deviation 50.1 H RDW Coeff of Marybel 14.6 Plt Count 131 L MPV 11.5 Immature Gran % (Auto) 0.500 Neut % (Auto) 61.6 Lymph % (Auto) 27.8 [place] % (Auto) 9.4 Eos % (Auto) 0.5 Baso % (Auto) 0.2 Absolute Neuts (auto) 3.7 Absolute Lymphs (auto) 1.68 Nucleated RBC % 0 PT PT Ratio INR APTT Thrombin Time Thrombin Time Mix Fibrinogen Lupus Anticoag aPTT Protein C Antigen Functional Protein C Prot C Funct Activity Sodium 137 Potassium 3.6 Chloride 103 Carbon Dioxide 24.0 Anion Gap 10 BUN 8 Creatinine 0.73 Estim Creat Clear Calc 89.93 Est GFR (MDRD) Af Amer 121 Est GFR (MDRD) Non-Af 100 BUN/Creatinine Ratio 11.0 Glucose 115 H Calcium 8.8 Troponin I < 0.015 B-Natriuretic Peptide Beta-2-GPI IgG Ab Beta-2-GPI IgA Ab Beta-2-GPI IgM Ab Anti-Cardiolipin IgG Ab Anti-Cardiolipin IgM Ab Factor II DNA Analysis 05/29/20 05/29/20 05/29/20 11:10 16:27 17:37 WBC RBC Hgb Hct MCV MCH MCHC RDW Std Deviation RDW Coeff of Marybel Plt Count MPV Immature Gran % (Auto) Neut % (Auto) Lymph % (Auto) [place] % (Auto) Eos % (Auto) Baso % (Auto) Absolute Neuts (auto) Absolute Lymphs (auto) Nucleated RBC % PT 12.5 PT Ratio INR 1.0 APTT 29.9 Thrombin Time Thrombin Time Mix Fibrinogen 474 H Lupus Anticoag aPTT Protein C Antigen Pending Functional Protein C Pending Prot C Funct Activity Pending Sodium Potassium Chloride Carbon Dioxide Anion Gap BUN Creatinine Estim Creat Clear Calc Est GFR (MDRD) Af Amer Est GFR (MDRD) Non-Af BUN/Creatinine Ratio Glucose Calcium Troponin I B-Natriuretic Peptide 59.4 Beta-2-GPI IgG Ab Beta-2-GPI IgA Ab Beta-2-GPI IgM Ab Anti-Cardiolipin IgG Ab Anti-Cardiolipin IgM Ab Factor II DNA Analysis Pending 05/29/20 17:37 WBC RBC Hgb Hct MCV MCH MCHC RDW Std Deviation RDW Coeff of Marybel Plt Count MPV Immature Gran % (Auto) Neut % (Auto) Lymph % (Auto) [place] % (Auto) Eos % (Auto) Baso % (Auto) Absolute Neuts (auto) Absolute Lymphs (auto) Nucleated RBC % PT PT Ratio Pending INR APTT Thrombin Time Pending Thrombin Time Mix Pending Fibrinogen Lupus Anticoag aPTT Pending Protein C Antigen Functional Protein C Prot C Funct Activity Sodium Potassium Chloride Carbon Dioxide Anion Gap BUN Creatinine Estim Creat Clear Calc Est GFR (MDRD) Af Amer Est GFR (MDRD) Non-Af BUN/Creatinine Ratio Glucose Calcium Troponin I B-Natriuretic Peptide Beta-2-GPI IgG Ab Pending Beta-2-GPI IgA Ab Pending Beta-2-GPI IgM Ab Pending Anti-Cardiolipin IgG Ab Pending Anti-Cardiolipin IgM Ab Pending Factor II DNA Analysis Social History Hx Smoking No Smoking Status Never smoker Review of Systems Constitutional: Denies: Chills, Fever, Malaise, Weakness Eyes: Denies: Blurred vision, Vision Change HEENT: Denies: Head Aches Cardiovascular: Denies: Chest Pain, Chest Tightness, Edema, Light Headedness, Palpitations Respiratory: Reports: Shortness of Breath, Shortness of breath at rest - When laying on back, Shortness of breath upon exertion. Denies: Cough, Pleuritic Pain Gastrointestinal: Denies: Abdominal Pain, Nausea, Vomiting Genitourinary: Denies: Dysuria Gynecological: Denies: Vaginal bleeding, Vaginal discharge, Vaginal itching Neurological: Denies: Balance problems Psychiatric: Denies: Anxiety, Depression Physical Exam Vitals: Vital Signs Temp Pulse Resp BP Pulse Ox 97.7 F L 83 16 109/64 99 05/29/20 18:50 05/29/20 19:00 05/29/20 18:50 05/29/20 18:50 05/29/20 18:50 General: Alert, Oriented x3, Cooperative, No apparent distress, Well developed, Well nourished HEENT: Atraumatic, PERRLA, EOMI, Normocephalic Cardiovascular: Regular rate, Regular Rhythm Lungs: Clear to auscultation, Normal air movement Abdomen: Soft, Non Tender, Non-Distended, Gravid, Appropriate for Gestational Age Extremities:: No edema Neurological: Cranial nerves II-XII grossly intact, Neuro grossly intact Assessment/Plan All Active Problems (Last Reviewed 05/29/20 @ 10:15 by Ashley France) Right upper lobe segmental pulmonary emb (Acute) Syncopal episodes (Acute) 36 weeks gestation of (Acute) Anemia affecting (Acute) History of tetanus, diphtheria, and acellular pertussis booster vaccination (Tdap) (Acute) H/O miscarriage, currently (Acute) Supervision of normal first (Acute) (Acute) Bleeding in early (Resolved) Low-lying placenta (Resolved) Subchorionic hemorrhage (Resolved) This is a 30 year-old, G 4, P 0, at 37 weeks gestational age. Pulmonary embolus -Patient with worsening shortness of breath over the last few weeks that she initially attributed to prior normal changes. -Pulmonary embolus identified on CTA of the chest done following episode of loss of consciousness -Internal medicine consulted-patient started on therapeutic Lovenox, patient will need to continue therapeutic anticoagulation for at least the next 3 months -Given prior 13-week loss, also ordered antiphospholipid antibody syndrome labs. -Additional hypercoagulability work-up ordered by internal medicine Loss of consciousness -Patient experienced episode of hyperventilation followed by prolonged period of being minimally responsive in the office. -Patient reports previously was told that these were panic attacks and was on medication previously without benefit. -Given that patient was noted to be rigid during the episode and that the episode was followed by a long period of minimal consciousness, I am concerned that this episode is not able to be attributed fully to a panic attack. -Orthostatic vital signs ordered by internal medicine. -Echocardiogram done and is normal. -If no identifiable causes while inpatient, will consider neurology referral after discharge. -Given the patient was previously diagnosed with panic attacks, discussed initiation of SSRI. Patient is extremely hesitant about the idea of starting any sort of psychiatric medication at this time. Patient wishes to continue monitoring the symptoms. -Continuous monitoring done following the episode was reassuring. -Growth ultrasound shows estimated weight in the 32nd percentile with 8 out of 8 biophysical profile. -NST twice daily ordered. - vitamin ordered Multi Select Codes - Visit Charges Observation E&M Codin Initial observation care L3 - Urinary/Genital Urinary/Genital CPT Codes: 86968-39 non-stress test Interp
--- NOTE | 2020-05-29 20:30 | NURSING ---
1956 Non-stress test completed at bedside while pt in PCU rm 21, ordered qshift. Pt denies any pain, contractions, SOB or other c/o. Cat I tracing on monitor, no contractions traced on monitor.
[2020-05-29] MEDS: 0.9% Normal Saline 1,000 ML 999 ML IV (23:17)
[2020-05-30] VITALS (10 sets, daily range): BP systolic 76–97; BP diastolic 32–58; PULSE 71–82; RESP 18–20; TEMP 36.7–36.8; O2SAT 97–100
[2020-05-30] MEDS: 0.9% Normal Saline 1,000 ML 999 ML IV (00:25)
[2020-05-30] MEDS: 0.9% Normal Saline 1,000 ML 100 ML IV (04:40)
[2020-05-30 08:07] LABS: ALB/GLOB Ratio 0.8 RATIO (0.9-2.4); AST(SGOT) 14 U/L (15-37); Alanine Aminotransfer ALT/SGPT 18 U/L (13-56); Albumin, Serum 2.3 g/dL (3.2-5.0); Alkaline Phosphatase 110 U/L (45-117); Anion Gap 6 (5-15); BUN 4 mg/dL (7-18); BUN/Creat Ratio 10.1 RATIO (10-20); Calcium,Total 7.8 mg/dL (8.5-10.1); Chloride 112 mmol/L (98-107); EST Glomerular Filtration Rate 203 mL/min (>60); Est Glom Filt Rate - Afr Amer 246 mL/min (>60); Estimated Creatinine Clearance 171.66 ml/min; Glucose 64 mg/dL (74-106); Potassium 3.7 mmol/L (3.5-5.1); Protein, Total 5.3 g/dL (6.4-8.2); Sodium Level 141 mmol/L (136-145)
[2020-05-30] MEDS: Enoxaparin 80 MG/0.8 ML Syringe 65 MG SC (08:46)
--- NOTE | 2020-05-30 09:59 | PCM.PN.OB ---
Patient Problems: Active and Suspected Problems (Last Reviewed 05/29/20 @ 10:15 by Ashley France) Right upper lobe segmental pulmonary emb (Acute) Syncopal episodes (Acute) 36 weeks gestation of (Acute) electronic covid test ordered 05/19/20 Anemia affecting (Acute) iron added. History of tetanus, diphtheria, and acellular pertussis booster vaccination (Tdap) (Acute) 03/23/20 H/O miscarriage, currently (Acute) 08/2019 Supervision of normal first (Acute) PRR DREW:06/18/20 [place]! Spouse: West (Acute) NIPT low risk, declines carrier and AFP. anatomy reviewed Subjective: Patient seen and examined. Reports doing well. Did have issues with low blood pressure overnight and was given fluid boluses. Patient was asymptomatic at the time of those episodes and remains asymptomatic at this time. Denies lightheadedness, dizziness, headaches, blurred vision, chest pain, shortness of breath. Does report feeling like her hands and feet are slightly swollen after receiving fluid. Denies contractions, leakage of fluid, vaginal bleeding Objective: Laboratory Tests 05/30/20 05/29/20 05/29/20 Range/Units 07:02 17:37 11:10 WBC (4.4-11.0) K/mm3 RBC (4.2-5.4) M/mm3 Hgb (12.0-15.0) g/dL Hct (37-47) % MCV (81-99) fL MCH (27.0-32.0) pg MCHC (32-36) g/dL RDW Std Deviation (35.1-43.9) fl RDW Coeff of Marybel (11.6-14.6) % Plt Count (150-450) K/mm3 MPV (6.2-12.0) fl Immature Gran % (Auto) (0.0-0.9) % Neut % (Auto) (47-70) % Lymph % (Auto) (19-41) % [place] % (Auto) (0-10) % Eos % (Auto) (0-5) % Baso % (Auto) (0-1) % Absolute Neuts (auto) (2.0-7.7) X10^3/uL Absolute Lymphs (auto) (0.83-4.51) X10^3/uL Nucleated RBC % (0-5) % PT 12.5 (11.7-14.9) SECONDS INR 1.0 APTT 29.9 (24.1-36.2) Seconds Fibrinogen 474 H (203-444) mg/dl Sodium 141 (136-145) mmol/L Potassium 3.7 (3.5-5.1) mmol/L Chloride 112 H (98-107) mmol/L Carbon Dioxide 23.0 (21.0-32.0) mmol/L Anion Gap 6 (5-15) BUN 4 L (7-18) mg/dL Creatinine 0.40 L (0.55-1.02) mg/dL Estim Creat Clear Calc 171.66 ml/min Est GFR (MDRD) Af Amer 246 (>60) mL/min Est GFR (MDRD) Non-Af 203 (>60) mL/min BUN/Creatinine Ratio 10.1 (10-20) RATIO Glucose 64 L (74-106) mg/dL Calcium 7.8 L (8.5-10.1) mg/dL Total Bilirubin 0.30 (0.20-1.00) mg/dL AST 14 L (15-37) U/L ALT 18 (13-56) U/L Alkaline Phosphatase 110 (45-117) U/L Troponin I (<0.045) ng/mL B-Natriuretic Peptide 59.4 (0-100) pg/mL Total Protein 5.3 L (6.4-8.2) g/dL Albumin 2.3 L (3.2-5.0) g/dL Globulin 3.0 (2.2-4.2) g/dL Albumin/Globulin Ratio 0.8 L (0.9-2.4) RATIO 05/29/20 05/29/20 05/29/20 Range/Units 11:10 11:10 11:10 WBC 6.0 (4.4-11.0) K/mm3 RBC 3.83 L (4.2-5.4) M/mm3 Hgb 12.3 (12.0-15.0) g/dL Hct 36.6 L (37-47) % MCV 95.6 (81-99) fL MCH 32.1 H (27.0-32.0) pg MCHC 33.6 (32-36) g/dL RDW Std Deviation 50.1 H (35.1-43.9) fl RDW Coeff of Marybel 14.6 (11.6-14.6) % Plt Count 131 L (150-450) K/mm3 MPV 11.5 (6.2-12.0) fl Immature Gran % (Auto) 0.500 (0.0-0.9) % Neut % (Auto) 61.6 (47-70) % Lymph % (Auto) 27.8 (19-41) % [place] % (Auto) 9.4 (0-10) % Eos % (Auto) 0.5 (0-5) % Baso % (Auto) 0.2 (0-1) % Absolute Neuts (auto) 3.7 (2.0-7.7) X10^3/uL Absolute Lymphs (auto) 1.68 (0.83-4.51) X10^3/uL Nucleated RBC % 0 (0-5) % PT (11.7-14.9) SECONDS INR APTT (24.1-36.2) Seconds Fibrinogen (203-444) mg/dl Sodium 137 (136-145) mmol/L Potassium 3.6 (3.5-5.1) mmol/L Chloride 103 (98-107) mmol/L Carbon Dioxide 24.0 (21.0-32.0) mmol/L Anion Gap 10 (5-15) BUN 8 (7-18) mg/dL Creatinine 0.73 (0.55-1.02) mg/dL Estim Creat Clear Calc 89.93 ml/min Est GFR (MDRD) Af Amer 121 (>60) mL/min Est GFR (MDRD) Non-Af 100 (>60) mL/min BUN/Creatinine Ratio 11.0 (10-20) RATIO Glucose 115 H (74-106) mg/dL Calcium 8.8 (8.5-10.1) mg/dL Total Bilirubin (0.20-1.00) mg/dL AST (15-37) U/L ALT (13-56) U/L Alkaline Phosphatase (45-117) U/L Troponin I < 0.015 (<0.045) ng/mL B-Natriuretic Peptide (0-100) pg/mL Total Protein (6.4-8.2) g/dL Albumin (3.2-5.0) g/dL Globulin (2.2-4.2) g/dL Albumin/Globulin Ratio (0.9-2.4) RATIO - Physical Exam Vitals/I&O's: Vital Signs Temp Pulse Resp BP Pulse Ox 98.1 F 81 18 97/57 L 98 05/30/20 08:42 05/30/20 08:42 05/30/20 08:42 05/30/20 08:42 05/30/20 08:42 Oxygen Flow Rate (L/min) 15 Oxygen Delivery Method Room Air Weight: 137 lb 1.6 oz Body Mass Index (BMI) 24.3 Orthostatic Vital Signs Start: 05/30/20 04:42 Freq: q24h Status: Active Protocol: Activity Type Activity Date Activity User E-Sign Co-Sign Detail Recorded Client Recorded Date Recorded By Document 05/30/20 04:42 TM [id number] 05/30/20 04:45 TM 05/30/20 04:42 Orthostatic Vitals Standing -Blood Pressure (90/60-120/80) 86/44 L -Extremity Use Left Arm -Pulse Rate (60-100) 75 Sitting -Blood Pressure (90/60-120/80) 85/46 L -Extremity Use Left Arm -Pulse Rate (60-100) 80 Lying -Blood Pressure (90/60-120/80) 76/40 L -Extremity Use Left Arm -Pulse Rate (60-100) 82 Intake and Output for Last 24 Hours 05/28/20 05/29/20 05/30/20 23:59 23:59 23:59 Intake Total 1670. / 1910. 2668.33 / 2668.33 Balance 1670. / 2668.33 / 2668.33 General: Alert, Oriented x3, Cooperative, No apparent distress, Well developed, Well nourished HEENT: Atraumatic, PERRLA, EOMI, Normocephalic Neck: Supple, No JVD Lungs: Normal air movement Cardiovascular: Regular rate, Regular Rhythm Abdomen: Soft, Non Tender, Non-Distended, Gravid, Appropriate for Gestational Age Extremities: No edema, No Calf Tenderness Neurological: Cranial nerves II-XII grossly intact, Neuro grossly intact Psych/Mental Status: Normal Affect, Appropriate Laboratory Results 05/29/20 11:10: WBC 6.0, RBC 3.83 L, Hgb 12.3, Hct 36.6 L, MCV 95.6, MCH 32.1 H, MCHC 33.6, RDW Std Deviation 50.1 H, RDW Coeff of Marybel 14.6, Plt Count 131 L, MPV 11.5, Immature Gran % (Auto) 0.500, Neut % (Auto) 61.6, Lymph % (Auto) 27.8, [place] % (Auto) 9.4, Eos % (Auto) 0.5, Baso % (Auto) 0.2, Absolute Neuts (auto) 3.7, Absolute Lymphs (auto) 1.68, Nucleated RBC % 0 05/29/20 11:10: Sodium 137, Potassium 3.6, Chloride 103, Carbon Dioxide 24.0, Anion Gap 10, BUN 8, Creatinine 0.73, Estim Creat Clear Calc 89.93, Est GFR (MDRD) Af Amer 121, Est GFR (MDRD) Non-Af 100, BUN/Creatinine Ratio 11.0, Glucose 115 H, Calcium 8.8 05/29/20 11:10: Troponin I < 0.015 05/29/20 11:10: B-Natriuretic Peptide 59.4 05/29/20 16:27: Protein C Antigen Pending, Functional Protein C Pending, Prot C Funct Activity Pending, Factor II DNA Analysis Pending 05/29/20 17:37: PT 12.5, INR 1.0, APTT 29.9, Fibrinogen 474 H 05/29/20 17:37: PT Ratio Pending, Thrombin Time Pending, Thrombin Time Mix Pending, Lupus Anticoag aPTT Pending, Beta-2-GPI IgG Ab Pending, Beta-2-GPI IgA Ab Pending, Beta-2-GPI IgM Ab Pending, Anti-Cardiolipin IgG Ab Pending, Anti-Cardiolipin IgM Ab Pending 05/30/20 07:02: Sodium 141, Potassium 3.7, Chloride 112 H, Carbon Dioxide 23.0, Anion Gap 6, BUN 4 L, Creatinine 0.40 L, Estim Creat Clear Calc 171.66, Est GFR (MDRD) Af Amer 246, Est GFR (MDRD) Non-Af 203, BUN/Creatinine Ratio 10.1, Glucose 64 L, Calcium 7.8 L, Total Bilirubin 0.30, AST 14 L, ALT 18, Alkaline Phosphatase 110, Total Protein 5.3 L, Albumin 2.3 L, Globulin 3.0, Albumin/Globulin Ratio 0.8 L Current Medications Acetaminophen (Acetaminophen 325 Mg Tablet) 650 mg PO Q6H PRN PRN PRN Reason: Pain Score 1-10 Enoxaparin Sodium (Enoxaparin 80 Mg/0.8 Ml Syringe) 65 mg SC Q12 LIZETTE Last Admin: 05/30/20 08:46 Dose: 65 mg Documented by: Sodium Chloride () 1,000 mls @ 100 mls/hr IV .Q10H LIZETTE Stop: 05/30/20 11:14 Last Admin: 05/30/20 04:40 Dose: 100 mls/hr Documented by: Ondansetron HCl (Ondansetron 4 Mg/2 Ml Vial) 4 mg IV Q8H PRN PRN PRN Reason: Nausea Only Multivit/Folic Acid/Iron ( Vits Tablet) 1 tablet PO DAILY@1200 LIZETTE Sodium Chloride (0.9% Saline Lock 10 Ml Syringe) 10 - 40 ml IV UD PRN PRN Reason: SALINE FLUSH Last Admin: 05/29/20 16:34 Dose: 10 ml Documented by: Medical Necessity - Tobacco Use Smoking Status: Never smoker Assessment/Plan All Active Problems (Last Reviewed 05/29/20 @ 10:15 by Ashley France) Right upper lobe segmental pulmonary emb (Acute) Syncopal episodes (Acute) 36 weeks gestation of (Acute) Anemia affecting (Acute) History of tetanus, diphtheria, and acellular pertussis booster vaccination (Tdap) (Acute) H/O miscarriage, currently (Acute) Supervision of normal first (Acute) (Acute) Bleeding in early (Resolved) Low-lying placenta (Resolved) Subchorionic hemorrhage (Resolved) This is a 30 year-old, G 4, P 0, at 37 weeks gestational age. Pulmonary embolus -Patient with worsening shortness of breath over the last few weeks that she initially attributed to prior normal changes. -Pulmonary embolus identified on CTA of the chest done following episode of loss of consciousness -Internal medicine consulted-patient started on therapeutic Lovenox, patient will need to continue therapeutic anticoagulation for at least the next 3 months -Hypercoagulability work-up and APLS labs pending. -Patient remains asymptomatic and not hypoxic. -Discussed with internal medicine-plan for discharge to home later today on therapeutic Lovenox Loss of consciousness -Patient experienced episode of hyperventilation followed by prolonged period of being minimally responsive in the office that she says are the same as when she normally gets panic attacks -Orthostatic vital signs normal -Echocardiogram normal -Patient hypotensive overnight, but was asymptomatic at this time. Status post fluid boluses. -We will consider outpatient referral to neurology for further work-up -Growth ultrasound shows estimated weight in the 32nd percentile with 8 out of 8 biophysical profile. -NST twice daily ordered. - vitamin ordered Multi Select Codes - Visit Charges Observation E&M Codin Observation care discharge
--- NOTE | 2020-05-30 10:11 | DCINST_ITS ---
- Discharge Diagnoses Current Active Problems: Current Active and Chronic Problems (Last Reviewed 05/29/20 @ 10:15 by Ashley France) Right upper lobe segmental pulmonary emb (Acute) Syncopal episodes (Acute) 36 weeks gestation of (Acute) electronic covid test ordered 05/19/20 Anemia affecting (Acute) iron added. History of tetanus, diphtheria, and acellular pertussis booster vaccination (Tdap) (Acute) 03/23/20 H/O miscarriage, currently (Acute) 08/2019 Supervision of normal first (Acute) PRR DREW:06/18/20 [place]! Spouse: West (Acute) NIPT low risk, declines carrier and AFP. anatomy reviewed Reason(s) for Visit for Discharge Instructions: Pulmonary embolus, loss of consciousness You will use the following diet at home:: No restrictions Your food should be the consistency of: Regular Discharge Activity: Return to Normal Activity Return to work on:: 06/01/20 May resume sexual activity in: No Restrictions Weight Bearing Status: Weight bearing as tolerated Lifting Restrictions: No lifting >40lbs Instructions: Pulmonary Embolism Allergies/Adverse Reactions: Allergies No Known Allergies Allergy (Verified 05/29/20 10:15) Medications to take at Discharge Vits [Prenatabs FA] 1 tablet PO DAILY 05/29/20 Primary Care Physician: Care Physician,No Primary [Primary Care Provider] - Test Results: Test results from this visit will be discussed in further detail at your follow- up appointment, if applicable. Please Follow Up With: Danielle Abraham MD When: Call office on Monday to schedule follow-up
--- NOTE | 2020-05-30 10:14 | DS.PCM_ITS ---
Discharge Date and Diagnosis - Problem List Patient Problems: Active and Suspected Problems (Last Reviewed 05/29/20 @ 10:15 by Ashley France) Right upper lobe segmental pulmonary emb (Acute) Syncopal episodes (Acute) 36 weeks gestation of (Acute) electronic covid test ordered 05/19/20 Anemia affecting (Acute) iron added. History of tetanus, diphtheria, and acellular pertussis booster vaccination (Tdap) (Acute) 03/23/20 H/O miscarriage, currently (Acute) 08/2019 Supervision of normal first (Acute) PRR DREW:06/18/20 [place]! Spouse: West (Acute) NIPT low risk, declines carrier and AFP. anatomy reviewed Date of Admission: 05/29/20 Date of Discharge: 05/30/20 - Primary Discharge Diagnosis Acute Problems: Active Problems (Last Reviewed 05/29/20 @ 10:15 by Ashley France) Right upper lobe segmental pulmonary emb (Acute) Syncopal episodes (Acute) 36 weeks gestation of (Acute) electronic covid test ordered 05/19/20 Anemia affecting (Acute) iron added. History of tetanus, diphtheria, and acellular pertussis booster vaccination (Tdap) (Acute) 03/23/20 H/O miscarriage, currently (Acute) 08/2019 Supervision of normal first (Acute) PRR DREW:06/18/20 [place]! Spouse: West (Acute) NIPT low risk, declines carrier and AFP. anatomy reviewed Hospital Course and Treatment Imaging Results: Clinical Impression(s) from Imaging Studies Brain CT 05/29/20 11:45 IMPRESSION: Normal unenhanced CT scan of the brain. Electronically Signed: Juan Francisco Dumont MD at 12:35 EDT , Service support , Chest CTA 05/29/20 11:45 IMPRESSION: Subsegmental intraluminal filling defects in branches of the right upper lobe pulmonary artery in keeping with localized pulmonary embolism. Electronically Signed: Juan Francisco Dumont MD at 12:45 EDT , Service support , Biophysical Profile Ultrasound 05/29/20 11:46 IMPRESSION: Normal biophysical profile of 8. Electronically Signed: Juan Francisco Dumont MD at 15:12 EDT , Service support , Obstetrics Ultrasound 05/29/20 11:46 IMPRESSION: Single live intrauterine gestation with a mean gestational age of 35 weeks and 6 days. The amniotic fluid measures lower limits of normal. Electronically Signed: Juan Francisco Dumont MD at 15:15 EDT , Service support , Echocardiogram 05/29/20 14:54 Interpretation Summary Normal LV size. Left ventricular systolic function is normal. The estimated ejection fraction is 55 %. Structurally normal valves. Ordering Physician: Arnel Zepeda Performed By: Daniel Noel RCS Hospitalist Operations: None Procedures: 2-D Echocardiogram, Angiogram, - - Biophysical profile and growth ultrasound Summary of Care Provided: The patient is a 30 year old F G4, P0 at 37 weeks gestation who was sent to the emergency department on 05/29 after having an episode of hyperventilation followed by minimal responsiveness in the office. Patient had a CT of the head that was negative and a CTA of the chest that identified a pulmonary embolism. Patient was admitted for initiation of Lovenox and evaluation following the episode in the office. Hypercoagulability work-up was ordered and a PLS labs were ordered. These were all pending upon discharge. Echocardiogram was performed and was normal. Preeclampsia labs were normal. Patient was slightly hypotensive during admission, but was asymptomatic. She received fluid boluses and her blood pressure came up to her normal range. Patient was discharged home in stable condition on 05/30 with close outpatient follow-up. Patient Problems: Active and Suspected Problems (Last Reviewed 05/29/20 @ 10:15 by Ashley France) Right upper lobe segmental pulmonary emb (Acute) Syncopal episodes (Acute) 36 weeks gestation of (Acute) electronic covid test ordered 05/19/20 Anemia affecting (Acute) iron added. History of tetanus, diphtheria, and acellular pertussis booster vaccination (Tdap) (Acute) 03/23/20 H/O miscarriage, currently (Acute) 08/2019 Supervision of normal first (Acute) PRR DREW:06/18/20 [place]! Spouse: West (Acute) NIPT low risk, declines carrier and AFP. anatomy reviewed - Physical Exam Vitals/I&O's: Vital Signs Temp Pulse Resp BP Pulse Ox 98.1 F 81 18 97/57 L 98 05/30/20 08:42 05/30/20 08:42 05/30/20 08:42 05/30/20 08:42 05/30/20 08:42 Oxygen Flow Rate (L/min) 15 Oxygen Delivery Method Room Air Weight: 137 lb 1.6 oz Body Mass Index (BMI) 24.3 Orthostatic Vital Signs Start: 05/30/20 04:42 Freq: q24h Status: Active Protocol: Activity Type Activity Date Activity User E-Sign Co-Sign Detail Recorded Client Recorded Date Recorded By Document 05/30/20 04:42 [id number] 05/30/20 04:45 TM 05/30/20 04:42 Orthostatic Vitals Standing -Blood Pressure (90/60-120/80) 86/44 L -Extremity Use Left Arm -Pulse Rate (60-100) 75 Sitting -Blood Pressure (90/60-120/80) 85/46 L -Extremity Use Left Arm -Pulse Rate (60-100) 80 Lying -Blood Pressure (90/60-120/80) 76/40 L -Extremity Use Left Arm -Pulse Rate (60-100) 82 Intake and Output for Last 24 Hours 03/25/21 03/26/21 03/27/21 23:59 23:59 23:59 Intake Total 1671.67 / 1911.67 2668.33 / 2668.33 Balance 1671.67 / 1910.67 2668.33 / 2668.33 Laboratory Results 05/29/20 11:10: WBC 6.0, RBC 3.83 L, Hgb 12.3, Hct 36.6 L, MCV 95.6, MCH 32.1 H, MCHC 33.6, RDW Std Deviation 50.1 H, RDW Coeff of Marybel 14.6, Plt Count 131 L, MPV 11.5, Immature Gran % (Auto) 0.500, Neut % (Auto) 61.6, Lymph % (Auto) 27.8, Bremer % (Auto) 9.4, Eos % (Auto) 0.5, Baso % (Auto) 0.2, Absolute Neuts (auto) 3.7, Absolute Lymphs (auto) 1.68, Nucleated RBC % 0 05/29/20 11:10: Sodium 137, Potassium 3.6, Chloride 103, Carbon Dioxide 24.0, Anion Gap 10, BUN 8, Creatinine 0.73, Estim Creat Clear Calc 89.93, Est GFR (MDRD) Af Amer 121, Est GFR (MDRD) Non-Af 100, BUN/Creatinine Ratio 11.0, Glucose 115 H, Calcium 8.8 05/29/20 11:10: Troponin I < 0.015 05/29/20 11:10: B-Natriuretic Peptide 59.4 05/29/20 16:27: Protein C Antigen Pending, Functional Protein C Pending, Prot C Funct Activity Pending, Factor II DNA Analysis Pending 05/29/20 17:37: PT 12.5, INR 1.0, APTT 29.9, Fibrinogen 474 H 05/29/20 17:37: PT Ratio Pending, Thrombin Time Pending, Thrombin Time Mix Pending, Lupus Anticoag aPTT Pending, Beta-2-GPI IgG Ab Pending, Beta-2-GPI IgA Ab Pending, Beta-2-GPI IgM Ab Pending, Anti-Cardiolipin IgG Ab Pending, Anti- Cardiolipin IgM Ab Pending 05/30/20 07:02: Sodium 141, Potassium 3.7, Chloride 112 H, Carbon Dioxide 23.0, Anion Gap 6, BUN 4 L, Creatinine 0.40 L, Estim Creat Clear Calc 171.66, Est GFR (MDRD) Af Amer 246, Est GFR (MDRD) Non-Af 203, BUN/Creatinine Ratio 10.1, Glucose 64 L, Calcium 7.8 L, Total Bilirubin 0.30, AST 14 L, ALT 18, Alkaline Phosphatase 110, Total Protein 5.3 L, Albumin 2.3 L, Globulin 3.0, Albumin/Globulin Ratio 0.8 L Current Medications Acetaminophen (Acetaminophen 325 Mg Tablet) 650 mg PO Q6H PRN PRN PRN Reason: Pain Score 1-10 Enoxaparin Sodium (Enoxaparin 80 Mg/0.8 Ml Syringe) 65 mg SC Q12 LIZETTE Last Admin: 05/30/20 08:46 Dose: 65 mg Documented by: Sodium Chloride () 1,000 mls @ 100 mls/hr IV .Q10H LIZETTE Stop: 05/30/20 11:14 Last Admin: 05/30/20 04:40 Dose: 100 mls/hr Documented by: Ondansetron HCl (Ondansetron 4 Mg/2 Ml Vial) 4 mg IV Q8H PRN PRN PRN Reason: Nausea Only Multivit/Folic Acid/Iron ( Vits Tablet) 1 tablet PO DAILY@1200 LIZETTE Sodium Chloride (0.9% Saline Lock 10 Ml Syringe) 10 - 40 ml IV UD PRN PRN Reason: SALINE FLUSH Last Admin: 05/29/20 16:34 Dose: 10 ml Documented by: Discharge Activity: Return to Normal Activity Return to work on:: 06/01/20 May resume sexual activity in: No Restrictions Weight Bearing Status: Weight bearing as tolerated Home Medications: Medications to take at Discharge Vits [Prenatabs FA] 1 tablet PO DAILY 05/29/20 Primary Care Physician: Care Physician,No Primary [Primary Care Provider] - Please Follow Up With: Danielle Abraham MD When: Call office on Monday to schedule follow-up Patient Instructions: Pulmonary Embolism Disposition: Home Patient Condition:: Good Medical Necessity - Tobacco Use Smoking Status: Never smoker Meaningful Use Info Meaningful Use Diagnoses (Choose all that apply): VTE - VTE Anticoag overlap given w/in hospital stay or rx'd at ks?: No Pt receive overlap for 5 days?: No Reason overlap not ordered, prescribed, or given for 5 days: Medical Contraindication - patient is - being given therapeutic lovenox at discharge
[2020-05-30] MEDS: Enoxaparin 80 MG/0.8 ML Syringe 35 MG SC (10:59)
--- NOTE | 2020-05-30 11:26 | NURSING ---
Lovenox injection education completed with patient and . Handout provided from [email or web address]. Also informed that video on website as well. Demonstration provided to patient and , voiced understanding.
--- NOTE | 2020-05-30 14:34 | PCM.PROGNOTE ---
Patient Problems: Active and Suspected Problems (Last Reviewed 05/29/20 @ 10:15 by Ashley France) Right upper lobe segmental pulmonary emb (Acute) Syncopal episodes (Acute) 36 weeks gestation of (Acute) electronic covid test ordered 05/19/20 Anemia affecting (Acute) iron added. History of tetanus, diphtheria, and acellular pertussis booster vaccination (Tdap) (Acute) 03/23/20 H/O miscarriage, currently (Acute) 08/2019 Supervision of normal first (Acute) PRR DREW:06/18/20 [place]! Spouse: [place] (Acute) NIPT low risk, declines carrier and AFP. anatomy reviewed Subjective: Patient was seen and examined today, I talked with OB -Butadiene Compressor Operator. Patient was admitted with pulmonary emboli and hypotension, she is up ambulating without any signs or symptoms of shortness of breath or lightheadedness. I think she could go home today and I discussed this with her STREETS AND BUILDINGS DECORATOR physician. - Physical Exam Vitals/I&O's: Vital Signs Temp Pulse Resp BP Pulse Ox 98.1 F 81 18 97/57 L 98 05/30/20 08:42 05/30/20 08:42 05/30/20 08:42 05/30/20 08:42 05/30/20 08:42 Oxygen Flow Rate (L/min) 15 Oxygen Delivery Method Room Air Weight: 62.188 kg Body Mass Index (BMI) 24.3 Intake and Output for Last 24 Hours 05/28/20 05/29/20 05/30/20 23:59 23:59 23:59 Intake Total 1671.67 / 1910.67 3296.66 / 3296.66 Balance 1671.67 / 1910.67 3296.66 / 3296.66 General: Alert, Oriented x3, Cooperative, No apparent distress, Well developed, Well nourished HEENT: Atraumatic, PERRLA, EOMI, Normocephalic Oral: Moist Mucosa Neck: Supple, No JVD, Trachea Midline, Thyroid Normal Size and Texture Lungs: Clear to auscultation, Normal air movement, No rhonchi, No wheeze, No rales Cardiovascular: Regular rate, Regular Rhythm, Normal S1, Normal S2, No murmurs Abdomen: Bowel Sounds Present, Soft, - - Patient is Extremities: No clubbing, No cyanosis, No edema, Capillary Refill Less than 3 Seconds Skin: No rashes, No breakdown Musculoskeletal: No Tenderness to Palpation of Joints or Extremities Neurological: Cranial nerves II-XII grossly intact, Neuro grossly intact, Sensory exam intact to light touch and pain Psych/Mental Status: Normal Affect, Appropriate, Alert and oriented to time, place, person, mood and affect Laboratory Results 05/29/20 11:10: Troponin I < 0.015 05/29/20 11:10: B-Natriuretic Peptide 59.4 05/29/20 16:27: Protein C Antigen Pending, Functional Protein C Pending, Prot C Funct Activity Pending, Factor II DNA Analysis Pending 05/29/20 17:37: PT 12.5, INR 1.0, APTT 29.9, Fibrinogen 474 H 05/29/20 17:37: PT Ratio Pending, Thrombin Time Pending, Thrombin Time Mix Pending, Lupus Anticoag aPTT Pending, Beta-2-GPI IgG Ab Pending, Beta-2-GPI IgA Ab Pending, Beta-2-GPI IgM Ab Pending, Anti-Cardiolipin IgG Ab Pending, Anti-Cardiolipin IgM Ab Pending 05/30/20 07:02: Sodium 141, Potassium 3.7, Chloride 112 H, Carbon Dioxide 23.0, Anion Gap 6, BUN 4 L, Creatinine 0.40 L, Estim Creat Clear Calc 171.66, Est GFR (MDRD) Af Amer 246, Est GFR (MDRD) Non-Af 203, BUN/Creatinine Ratio 10.1, Glucose 64 L, Calcium 7.8 L, Total Bilirubin 0.30, AST 14 L, ALT 18, Alkaline Phosphatase 110, Total Protein 5.3 L, Albumin 2.3 L, Globulin 3.0, Albumin/Globulin Ratio 0.8 L Medical Necessity - Tobacco Use Smoking Status: Never smoker Assessment/Plan All Active Problems (Last Reviewed 05/29/20 @ 10:15 by Ashley France) Pulmonary embolism (Acute) Right upper lobe segmental pulmonary emb (Acute) Syncopal episodes (Acute) 36 weeks gestation of (Acute) Anemia affecting (Acute) History of tetanus, diphtheria, and acellular pertussis booster vaccination (Tdap) (Acute) H/O miscarriage, currently (Acute) Supervision of normal first (Acute) (Acute) Bleeding in early (Resolved) Low-lying placenta (Resolved) Subchorionic hemorrhage (Resolved) #1 acute pulmonary embolism-probably is a secondary result of , patient appears stable for discharge at this time, I have recommended that Lovenox once a day be used at a dose of 1.5 mg/kg, this is approximately 100 mg subcu per day. I passed this on to MARKETING ACCOUNT EXECUTIVE. Patient's echocardiogram was unremarkable Inpatient E&M: [id number] Subs Hosp L2
[2020-06-02 16:08] LABS: Dilute Prothrombin Time (dPT) 28.5 sec (0.0-55.0); PTT-LA 35.4 sec (0.0-51.9); Thrombin Time 14.9 sec (0.0-23.0); dPT Confirm Ratio 1.07 Ratio (0.00-1.40)
[2020-06-03 11:57] LABS: Anti-Cardiolipin Ab, IgG, Qn < 9 GPL U/mL (0-14); Anti-Cardiolipin Ab, IgM, Qn 14 MPL U/mL (0-12); Beta-2-Glycoprotein I IgA <9 (0-25); Beta-2-Glycoprotein I IgG <9 (0-20); Beta-2-Glycoprotein I IgM <9 (0-32); Interpretation Comment: (.)
[2020-06-03 16:08] LABS: Protein C Antigen 88 % (60-150); Protein C, Functional 124 % (73-180)
== END 2020-05-30 11:25 | disposition home or self-care (01) | DRG 833 ==
LOC: ED 12:05 → PCU 06-01 10:38
PROVIDERS: Internal Medicine; Admitting Provider Obstetrics & Gynecology; Emergency Provider Emergency Medicine; Visit Provider Obstetrics & Gynecology
DX: O88.813 Other embolism in pregnancy, third trimester (principal); D64.9 Anemia, unspecified; O99.02 Anemia complicating childbirth; Z3A.37 37 weeks gestation of pregnancy; R55 Syncope and collapse
CPT/HCPCS: 36415; 59025; 59050; 70450; 71275; 76816; 76819; 80048; 80053; 81240; 83880; 84484; 85025; 85302; 85303; 85384; 85610; 85730; 86146; 86147; 93005; 93306; 96360; 96361; 96372; 99218; 99285; J7030; Q9967; A4216; G0378

== ENCOUNTER → 2020-09-30 09:23 | Outpatient (CLI) | payer BC, SELFPAY ==
[2020-09-30 09:00] VITALS: BMI 20.6
[2020-09-30 09:55] LABS: hCG Titer Quant., Serum < 1 mIU/mL (1-3)
[2020-09-30 10:00] LABS: Prolactin 3.7 ng/mL; Thyroid Stim Hormone (TSH) 1.28 uIU/mL (0.358-3.74)
== END ==
PROVIDERS: Referring Provider Obstetrics & Gynecology; Visit Provider Obstetrics & Gynecology
DX: N91.2 Amenorrhea, unspecified (principal)
CPT/HCPCS: 36415; 84146; 84443; 84702

== ENCOUNTER → 2020-10-03 10:39 | Outpatient (CLI) | payer BC, SELFPAY ==
[2020-09-30 09:00] VITALS: BMI 20.6
--- NOTE | 2020-10-03 10:41 | US_ITS ---
STUDY: ULTRASOUND TRANSVAGINAL CLINICAL: Female, 30 years old. amenorrhea- delivery on 06/12/20 TECHNIQUE: Transvaginal COMPARISON: None. FINDINGS: Normal uterine size measuring 7.4 x 6.5 x 4.6 cm in maximal craniocaudal dimension. There are no myometrial masses. Normal endometrial thickness measuring 8 mm. There are no endometrial masses, but there is fluid in the endometrial cavity. Normal uterine cervix. Normal right ovary, measuring 2.8 x 2.8 x 2.8 cm. There are multiple follicles without a dominant cyst. Normal left ovary, measuring 3.7 x 2.0 x 1.7 cm. There are multiple follicles without a dominant cyst. There is no free fluid in the pelvis. Polycystic ovary disease: No. US/Transvaginal Non- IMPRESSION: Small amount of endometrial fluid. Electronically Signed: Rogelio Olivares MD at 8:17 EDT Tel , Service support ,
--- NOTE | 2020-10-03 10:41 | US_ITS ---
STUDY: ULTRASOUND TRANSVAGINAL CLINICAL: Female, 30 years old. amenorrhea- delivery on 06/12/20 TECHNIQUE: Transvaginal COMPARISON: None. FINDINGS: Normal uterine size measuring 7.4 x 6.5 x 4.6 cm in maximal craniocaudal dimension. There are no myometrial masses. Normal endometrial thickness measuring 8 mm. There are no endometrial masses, but there is fluid in the endometrial cavity. Normal uterine cervix. Normal right ovary, measuring 2.8 x 2.8 x 2.8 cm. There are multiple follicles without a dominant cyst. Normal left ovary, measuring 3.7 x 2.0 x 1.7 cm. There are multiple follicles without a dominant cyst. There is no free fluid in the pelvis. Polycystic ovary disease: No. US/Pelvic (Non ) IMPRESSION: Small amount of endometrial fluid. Electronically Signed: Rogelio Olivares MD at 8:17 EDT Tel , Service support ,
== END ==
PROVIDERS: PCP Family Medicine; Referring Provider Obstetrics & Gynecology; Visit Provider Obstetrics & Gynecology
DX: N91.2 Amenorrhea, unspecified (principal)
CPT/HCPCS: 76830; 76856